=== PATIENT | female | born 1970 | race Caucasian/White ===

== ENCOUNTER 2016-04-25 12:13 | Emergency (ER) | payer OTHER ==
[~2016-04-25] VITALS: Ht 162.6 cm; Wt 83.0 kg
[~2016-04-25 12:13] MED LIST: ACYC400T PO; APIDINJ INJ; LEXA20TA PO; NAPR500 PO; PREM.625 PO; [UNRECOGNIZED DRUG - REMARK] PO
[2016-04-25 12:35] VITALS: BP 125/88; PULSE 68; RESP 17; TEMP 98.8; O2SAT 99
[2016-04-25] MEDS ORDERED: methylPREDNISolone SOD SUCC 125 MG/2 ML VIAL IM ONE (13:00)
[2016-04-25] MEDS ORDERED: LEXA10TA PO (13:05)
[2016-04-25] MEDS ORDERED: NOVOLOGSS (13:05)
--- NOTE | 2016-04-25 13:16 | PD ---
HPI Chief Complaint: Pain: Acute or Chronic Time Seen by Provider: 13:13 Travel History International Travel<30 days: No Contact w/Intl Traveler<30days: No Traveled to known affect area: No History of Present Illness HPI Patient is a 46-year-old female presenting to emergency for evaluation of 2-3 months of widespread joint pain and inflammation. Patient states she was diagnosed with RA by her primary doctor but has not been to a interactive account manager yet. She is not currently receiving any treatment for the RA today. States the pain is interfering with her ADLs. She states it's in her knee, feet, hands , shoulders or elbows. She states it started abruptly 2-3 months ago. She denies any injury or trauma. PFSH Past Medical History Autoimmune Disease: Yes (Hoshimoto) Depression: Yes Diabetes: Yes Patient Takes Glucophage: No Diminished Hearing: No Medical other: Yes (ra) Tetanus Vaccination: > 5 Years Influenza Vaccination: No ?: Not LMP: UTERINE ABLATION Tubal Ligation: Yes Past Surgical History Gynecologic Surgery: Yes (uterine ablasion) Social History Alcohol Use: Yes (mod) Tobacco Use: No Substance Use: No Allergies-Medications (Allergen,Severity, Reaction): Coded Allergies: No Known Allergies (Unverified , 04/25/16) Reported Meds & Prescriptions Reported Meds & Active Scripts Active Prednisone 50 Mg Tab 50 Mg PO DAILY 5 Days Reported Lexapro (Escitalopram Oxalate) 10 Mg Tab 10 Mg PO DAILY Novolog Inj (Insulin Aspart) 100 Unit/Ml Inj Review of Systems Except as stated in HPI: all other systems reviewed are Neg Musculoskeletal: Positive: Myalgias, Arthralgias, Limited ROM, Edema, Pain Physical Exam Narrative GENERAL: Well-nourished, well-developed patient. SKIN: Warm and dry. HEAD: Normocephalic. EYES: No scleral icterus. No injection or drainage. NECK: Supple, trachea midline. No JVD or lymphadenopathy. CARDIOVASCULAR: Regular rate and rhythm without murmurs, gallops, or rubs. RESPIRATORY: Breath sounds equal bilaterally. No accessory muscle use. GASTROINTESTINAL: Abdomen soft, non-tender, nondistended. MUSCULOSKELETAL: No cyanosis, mild edema noted to bilateral hands and feet. Positive pedal pulses, brisk less than 3 second capillary refill. No obvious deformities noted. BACK: Nontender without obvious deformity. No CVA tenderness. Data Data Last Documented VS Vital Signs Date Time Temp Pulse Resp B/P Pulse Ox O2 Delivery O2 Flow Rate FiO2 04/25/16 12:35 98.8 68 17 125/88 99 Orders Complete Blood Count With Diff (04/25/16 12:52) Basic Metabolic Panel (Bmp) (04/25/16 12:52) C-Reactive Protein (Crp) (04/25/16 12:52) Westergren Sedimentation Rate (04/25/16 12:52) Methylprednisolone So Succ Inj (Solumedr (04/25/16 13:00) Labs Laboratory Tests Test 04/25/16 04/25/16 12:52 13:15 Erythrocyte Sedimentation Rate 16 mm/hr White Blood Count 6.8 TH/MM3 Red Blood Count 4.24 MIL/MM3 Hemoglobin 12.8 GM/DL Hematocrit 36.9 % Mean Corpuscular Volume 87.1 FL Mean Corpuscular Hemoglobin 30.3 PG Mean Corpuscular Hemoglobin 34.7 % Concent Red Cell Distribution Width 11.9 % Platelet Count 304 TH/MM3 Mean Platelet Volume 8.6 FL Neutrophils (%) (Auto) 56.1 % Lymphocytes (%) (Auto) 35.5 % Monocytes (%) (Auto) 5.4 % Eosinophils (%) (Auto) 2.3 % Basophils (%) (Auto) 0.7 % Neutrophils # (Auto) 3.8 TH/MM3 Lymphocytes # (Auto) 2.4 TH/MM3 Monocytes # (Auto) 0.4 TH/MM3 Eosinophils # (Auto) 0.2 TH/MM3 Basophils # (Auto) 0.0 TH/MM3 CBC Comment DIFF FINAL Differential Comment Sodium Level 140 MEQ/L Potassium Level 3.9 MEQ/L Chloride Level 104 MEQ/L Carbon Dioxide Level 29.6 MEQ/L Anion Gap 6 MEQ/L Blood Urea Nitrogen 15 MG/DL Creatinine 0.89 MG/DL Estimat Glomerular Filtration 69 ML/MIN Rate Random Glucose 220 MG/DL Calcium Level 8.3 MG/DL C-Reactive Protein 0.50 MG/DL MDM Medical Decision Making Medical Screen Exam Complete: Yes Emergency Medical Condition: Yes Interpretation(s) Vital Signs Date Time Temp Pulse Resp B/P Pulse Ox O2 Delivery O2 Flow Rate FiO2 04/25/16 12:35 98.8 68 17 125/88 99 Differential Diagnosis Recurrent arthritis versus polymyalgia rheumatica versus arthritis versus other Narrative Course Patient is a 46-year-old female presented to emergency department for evaluation of 2-3 months of widespread joint pain and inflammation. Patient was told she had rheumatoid arthritis, has not been to see a specialist at. She is not currently on any treatment for this. In the differential would be polymyalgia rheumatica due to the abrupt onset. Labs ordered and pending, Solu- Medrol ordered. CBC, sedimentation rate are unremarkable. Chemistries unremarkable with the exception of elevated glucose which is to be expected, patient is diabetic. CRP is 0.50. Labs are not indicative of polymyalgia rheumatica. Patient is encouraged to follow-up with her primary doctor for ongoing evaluation and management of her chronic health conditions, take medications as directed. She is encouraged to return to emergency department for any new or worsening symptoms. I went in to discuss lab results with patient, advising her to follow up with her primary doctor, she began to get upset, crying, and yelling. She stated that no one will help her, she then stated that this hospital sent her mother home twice with MRSA infection. She was offered a prescription for a short course of pain medication until she could be seen by her primary, she continued to get further upset. At that time I asked my attending physician to speak with patient. Patient began to get upset, she used expletives with her. Diagnosis Primary Impression: Rheumatoid arthritis Qualified Code: M06.9 - Rheumatoid arthritis, involving unspecified site, unspecified rheumatoid factor presence Referrals: Primary Care Physician Patient Instructions: General Instructions Additional Instructions: Follow-up with your primary doctor Follow-up with interactive account manager Return to emergency department for any new or worsening symptoms Take medications as directed Med/Other Pt SpecificInfo: Prescription(s) given Scripts Prednisone 50 Mg Tab50 Mg PO DAILY 5 Days Ref 0 Prov:Cynthia Villar 04/25/16 Disposition: 01 DISCHARGE HOME Condition: Fair Cynthia Villar Apr 25, 2016 13:16
[2016-04-25 13:32] LABS: POTASSIUM 3.9 MEQ/L (3.5-5.1)
[2016-04-25 13:34] LABS: BICARBONATE 29.6 MEQ/L (21.0-32.0)
[2016-04-25 14:27] LABS: AUTOMATED NEUTROPHIL # 3.8 TH/MM3 (1.8-7.7); BASOPHIL % 0.7 % (0.0-2.0); EOSINOPHIL # 0.2 TH/MM3 (0-0.4); EOSINOPHIL % 2.3 % (0.0-4.0); HEMATOCRIT 36.9 % (35.0-46.0); HEMO FLAGS DIFF FINAL; LYMPH % 35.5 % (9.0-44.0); LYMPHOCYTE # 2.4 TH/MM3 (1.0-4.8); MEAN CELL VOLUME 87.1 FL (80.0-100.0); MEAN CORPUSCULAR HEMOGLOBIN 30.3 PG (27.0-34.0); MEAN CORPUSCULAR HGB CONC 34.7 % (32.0-36.0); MONO % 5.4 % (0.0-8.0); NEUT % 56.1 % (16.0-70.0); PLATELET COUNT 304 TH/MM3 (150-450); RED BLOOD COUNT 4.24 MIL/MM3 (4.00-5.30); RED CELL DISTRIBUTION WIDTH 11.9 % (11.6-17.2); WHITE BLOOD COUNT 6.8 TH/MM3 (4.0-11.0)
[2016-04-25] MEDS ORDERED: PRED50 PO (14:33)
--- NOTE | 2016-04-25 18:37 | PD ---
Physical Exam Narrative GENERAL: Well-nourished, well-developed patient. SKIN: Warm and dry. HEAD: Normocephalic and atraumatic. EYES: No injection or drainage. ENT: No nasal drainage noted. NECK: Supple, trachea midline. CARDIOVASCULAR: Regular rate and rhythm RESPIRATORY: no increased effort. No accessory muscle use. EXTREMITIES: No edema. Movement of toes noted NEUROLOGICAL: Awake and alert. Motor and sensory grossly within normal limits. Normal speech. Data Data Last Documented VS Vital Signs Date Time Temp Pulse Resp B/P Pulse Ox O2 Delivery O2 Flow Rate FiO2 04/25/16 12:35 98.8 68 17 125/88 99 Orders Complete Blood Count With Diff (04/25/16 12:52) Basic Metabolic Panel (Bmp) (04/25/16 12:52) C-Reactive Protein (Crp) (04/25/16 12:52) Westergren Sedimentation Rate (04/25/16 12:52) Methylprednisolone So Succ Inj (Solumedr (04/25/16 13:00) Labs Laboratory Tests Test 04/25/16 04/25/16 12:52 13:15 Erythrocyte Sedimentation Rate 16 mm/hr White Blood Count 6.8 TH/MM3 Red Blood Count 4.24 MIL/MM3 Hemoglobin 12.8 GM/DL Hematocrit 36.9 % Mean Corpuscular Volume 87.1 FL Mean Corpuscular Hemoglobin 30.3 PG Mean Corpuscular Hemoglobin 34.7 % Concent Red Cell Distribution Width 11.9 % Platelet Count 304 TH/MM3 Mean Platelet Volume 8.6 FL Neutrophils (%) (Auto) 56.1 % Lymphocytes (%) (Auto) 35.5 % Monocytes (%) (Auto) 5.4 % Eosinophils (%) (Auto) 2.3 % Basophils (%) (Auto) 0.7 % Neutrophils # (Auto) 3.8 TH/MM3 Lymphocytes # (Auto) 2.4 TH/MM3 Monocytes # (Auto) 0.4 TH/MM3 Eosinophils # (Auto) 0.2 TH/MM3 Basophils # (Auto) 0.0 TH/MM3 CBC Comment DIFF FINAL Differential Comment Sodium Level 140 MEQ/L Potassium Level 3.9 MEQ/L Chloride Level 104 MEQ/L Carbon Dioxide Level 29.6 MEQ/L Anion Gap 6 MEQ/L Blood Urea Nitrogen 15 MG/DL Creatinine 0.89 MG/DL Estimat Glomerular Filtration 69 ML/MIN Rate Random Glucose 220 MG/DL Calcium Level 8.3 MG/DL C-Reactive Protein 0.50 MG/DL MDM Supervised Visit with ROBERTO: Yes Narrative Course Cynthia asked me to talk with patient to review presentation given patient was upset. I went in to talk with the patient with charge nurse at bedside and patient got upset and said that she could not f-in move her toe. She was looking at her phone using Facebook and texting while she was saying this to me. Movement of toe noted, patient states she can move toe but it hurts. I reviewed that her blood work showed no emergency findings and she had no fever, she continued to look at her phone when I was talking with her and I had a call from a physician so I told her I would come back and talk with her when she was ready. Patient elected to leave without talking with me again when I went back after my phone call with another physician Diagnosis Primary Impression: Joint pain Qualified Code: M25.50 - Arthralgia, unspecified joint Referrals: Primary Care Physician Patient Instructions: General Instructions Departure Forms: Tests/Procedures Additional Instruction: Follow-up with your primary doctor Follow-up with life support technician Return to emergency department for any new or worsening symptoms Take medications as directed Med/Other Pt SpecificInfo: Prescription(s) given Scripts Prednisone 50 Mg Tab50 Mg PO DAILY 5 Days Ref 0 Prov:Cynthia Villar 04/25/16 Disposition: 01 DISCHARGE HOME Condition: Elisha Alonso MD Apr 25, 2016 18:37
[2016-05-18] MEDS ORDERED: PREM.625 PO (09:15)
[2016-05-18] MEDS ORDERED: HUMA100I2 SQ (09:15)
[2016-05-18] MEDS ORDERED: MOBI15TA PO (09:30)
[2016-05-28] MEDS ORDERED: CELE200C PO (11:09)
[2016-06-25] MEDS ORDERED: CELE200C PO (14:46)
== END 2016-04-25 16:22 | disposition home or self-care (01) ==
LOC: PHEFT 12:13
DX: M06.9 Rheumatoid arthritis, unspecified (principal); E06.3 Autoimmune thyroiditis; E11.9 Type 2 diabetes mellitus without complications; F10.10 Alcohol abuse, uncomplicated
CPT/HCPCS: 80048; 85025; 85652; 86140; 96372; 99283; J2930